=== PATIENT | male | born 1965 | race Caucasian/White ===

== ENCOUNTER 2023-08-21 15:55 | Emergency (ER) | payer OTHER, SELFPAY ==
--- NOTE | ~2023-08-21 | US_ITS ---
COMPLETE ABDOMINAL ULTRASOUND Ordering provider: En Santana PA-C History: . RUQ pain, burning . Comparison: None. FINDINGS: LIVER: Normal size and echotexture. No focal hepatic lesions or perihepatic fluid collections are yanet ntified. The liver measures 19.4 cm. Normal portal vein flow. GALLBLADDER: Contracted. BILIARY DUCTS: No evidence for intra or extrahepatic biliary dilation. Common bile duct measures 4 mm in diameter which is within normal limits. PANCREAS: Not visualized. FREE FLUID: None. IMPRESSION: Contracted gallbladder. Hepatomegaly with No focal lesions seen in the liver. Reviewed, dictated and finalized at location A.
--- NOTE | ~2023-08-21 | CT_ITS ---
CT abdomen pelvis w con Ordering provider: En Santana PA-C History: 57 years Male with . RUQ tenderness . Comparison: None. Technique: CT abdomen and pelvis with IV and without oral contrast. Radiation reduction technique uti lized. Findings: VISUALIZED LOWER CHEST: Minimal dependent atelectatic changes. UPPER ABDOMINAL ORGANS: Liver: Normal. Gallbladder: Contracted. Spleen: Normal. Stomach/duodenum: Normal. Pancreas: Normal. Adrenals: Normal. Kidneys: Tiny cyst in the right kidney upper pole. Minimal Perinephric stranding Around both kidneys. an exophytic mass seen in the left kidney midpole measuring 2.1 x 1.8 x 1.8 cm. PELVIC ORGANS: The bladder is normal. BOWEL AND MESENTERY: Colon: No evidence of diverticulitis. Normal appendix. Small Bowel: Normal. No obstruction. Peritoneum/mesentery: No free air or free fluid. No mesenteric lymphadenopathy. Small mesenteric lymp h nodes are noted. RETROPERITONEUM: Normal aorta. No retroperitoneal lymphadenopathy. MUSCULOSKELETAL: Superficial soft tissues: Small fat-containing umbilical hernia. Small inguinal lymph nodes. The larg est measures 1.4 cc. Otherwise, The superficial soft tissues are normal. Bones: Age appropriate degenerative changes of the spine. Pubic symphysitis. Sclerotic area in the ri ght sacral alar may be due to sacroiliitis. Follow-up advised. IMPRESSION: 1. No evidence of appendicitis, diverticulitis or intestinal obstruction. No definite renal stones. 2. Highly suggestive mass in the left kidney mid pole. Follow-up and further evaluation advised. 3. Sclerotic lesion in the right sacral alar. Follow-up advised. 4. Small fat-containing umbilical hernia. Reviewed, dictated and finalized at location A. IMPRESSION: 1. No evidence of appendicitis, diverticulitis or intestinal obstruction. No d efinite renal stones. 2. Highly suggestive mass in the left kidney mid pole. Follow-up and further e valuation advised. 3. Sclerotic lesion in the right sacral alar. Follow-up advised. 4. Small fat-containing umbilical hernia.
[2023-08-21 16:05] VITALS: BP 184/104; PULSE 107; RESP 18; O2SAT 97
[2023-08-21 16:06] VITALS: BP 165/70; PULSE 106; RESP 20; TEMP 36.4; O2SAT 97
--- NOTE | 2023-08-21 16:08 | ECG_ITS ---
Test Date: 2023-08-21 16:12:48 Measurements Intervals [place] Rate: 108 P: 39 AK: 140 QRS: 48 QRSD: 85 T: 33 QT: 320 QTc: 429 Interpretive Statements SINUS TACHYCARDIA No previous ECG available for comparison Electronically Signed On 08-22-2023 12:37:36 CDT by Elsa Noble M.D.
[2023-08-21 16:20] LABS: Basophils Absolute Auto 0.1 K/mm3 (0.0-0.1); Basophils Percent Auto 0.8 % (0.2-1.2); Eosinophils Absolute Auto 0.2 K/mm3 (0-0.3); Eosinophils Percent Auto 3.1 % (0-4.4); Hemoglobin 18.5 g/dL (14.0-18.0); Immature Granulocyte Absolute 0.01 K/mm3 (0.00-0.031); Immature Granulocyte Percent A 0.2 % (0-0.5); Lymphocytes Absolute Auto 1.49 K/mm3 (0.9-3.2); Mean Corpuscular HGB Conc 34.3 g/dl (32-36); Mean Corpuscular Volume 87.5 fl (80-100); Mean Platelet Volume 10.6 fl (7.4-10.4); Monocytes Absolute Auto 0.6 K/mm3 (0.1-0.6); Monocytes Percent Auto 8.7 % (2.6-8.5); Neutrophils Absolute Auto 4.2 K/mm3 (1.3-6.7); Neutrophils Percent Auto 64.2 % (45.5-73.1); Platelet Count Result 166 k/mm3 (150-375); Red Blood Count 6.17 M/mm3 (4.6-6.20); Red Cell Distribution Width 13.7 % (11.5-14.5); White Blood Count 6.5 K/mm3 (4.5-10.0)
[2023-08-21 16:37] LABS: Alanine Aminotransferase 24 U/L (6-50); Alkaline Phosphatase 77 U/L (38-126); Anion Gap 12 mmol/L (4-12); Aspartate Amino Transferase 36 U/L (17-59); Bilirubin,Total 0.9 mg/dL (0.2-1.3); Blood Urea Nitrogen 20 mg/dL (9-20); Calcium 9.7 mg/dL (8.4-10.2); Carbon Dioxide 25 mmol/L (22-30); Chloride 103 mmol/L (98-107); Estimated CRCL calculation 81 ml/min; Estimated Glomerular Filt Rate > 60; Glucose 260 mg/dL (65-110); Lipase 250 U/L (23-300); Potassium 4.6 mmol/L (3.4-5.0); Sodium 140 mmol/L (137-145)
--- NOTE | 2023-08-21 16:39 | ED.ABDPAIN ---
HPI - Abdominal Pain General Chief Complaint: Abdominal Pain <LISBETH Bowling Last Filed: 08/30/23 08:59> Stated Complaint: RUQ abd pain <LISBETH Bowling Last Filed: 08/30/23 08:59> Time Seen by Provider: 08/21/23 16:07 <En Santana PA-C - Last Filed: 08/30/23 08:59> Source: patient <LISBETH Bowling Last Filed: 08/30/23 08:59> Mode of arrival: ambulatory <LISBETH Bowling Last Filed: 08/30/23 08:59> Limitations: no limitations <LISBETH Bowling Last Filed: 08/30/23 08:59> History of Present Illness HPI narrative: This is a 57-year-old male who presents to the ED with chief complaint of epigastric and right upper quadrant pain this started 2 days ago. Reports a lot of pressure like pain in the abdomen but worse in those areas. Patient states that he is a diabetic but does not check his blood sugars anymore as he has had frequent low A1cs. States his last A1c was in the upper 5s. states he has been having regular bowel movements. Denies fevers, chills, nausea, vomiting, troubles with urination, chest pain, shortness of breath. <En Santana PA-C - Last Filed: 08/30/23 08:59> Related Data Allergies/Adverse Reactions: Allergies Allergy/AdvReac Type Severity Reaction Status Date / Time No Known Allergies Allergy Verified 08/21/23 16:08 <En Santana PA-C - Last Filed: 08/30/23 08:59> Exam Narrative: GENERAL: Well-appearing, well-nourished, and in no acute distress. HEAD: Normocephalic, atraumatic. EYES: PERRLA and EOMI. ENT: Nares clear, no rhinorrhea or epistaxis. Mucous membranes moist. Oropharynx without tonsillar hypertrophy exudate or other lesions. NECK: Supple. No adenopathy or masses. CHEST: No respiratory distress. Clear to auscultation. No wheezes rales or rhonchi HEART: Regular rate and rhythm. No murmur heard. Normal peripheral pulses. ABDOMEN: Soft, nontender, nondistended, normal active bowel sounds. MSK: Normal range of motion. No edema. SKIN: Warm, dry, no rash. NEURO: Alert and oriented x4. No focal deficits. PSYCH: Normal mood and affect. <En Santana PA-C - Last Filed: 08/30/23 08:59> Course Course Emergency Course: 19:08: sign-out to me pending gallbladder ultrasound which shows a contacted gallbladder with hepatomegaly, no focal lesions. LFTs normal. Patient was updated on these results and advised to follow-up with his PCP. Strict ED return precautions discussed. He is agreeable to plan verbalized understanding. Discharged in stable condition. <Liya Sharma PA-C - Last Filed: 08/21/23 19:11> Vital Signs Vital signs: Vital Signs Pulse Rate 107 H 08/21/23 16:05 Respiratory Rate 18 08/21/23 16:05 Blood Pressure 184/104 H 08/21/23 16:05 Pulse Oximetry 97 08/21/23 16:05 Oxygen Delivery Room Air 08/21/23 16:05 Temperature 97.4 F L 08/21/23 19:01 Pulse Rate 102 H 08/21/23 19:01 Respiratory Rate 14 08/21/23 19:01 Blood Pressure 126/87 08/21/23 19:01 Pulse Oximetry 96 08/21/23 19:01 Oxygen Delivery Room Air 08/21/23 16:05 <En Santana PA-C - Last Filed: 08/30/23 08:59> Vital Signs Pulse Rate 107 H 08/21/23 16:05 Respiratory Rate 18 08/21/23 16:05 Blood Pressure 184/104 H 08/21/23 16:05 Pulse Oximetry 97 08/21/23 16:05 Oxygen Delivery Room Air 08/21/23 16:05 Temperature 97.4 F L 08/21/23 19:01 Pulse Rate 102 H 08/21/23 19:01 Respiratory Rate 14 08/21/23 19:01 Blood Pressure 126/87 08/21/23 19:01 Pulse Oximetry 96 08/21/23 19:01 Oxygen Delivery Room Air 06/12/24 16:05 <Liya Sharma PA-C - Last Filed: 08/21/23 19:11> MDM - Abdominal Pain MDM Narrative Medical decision making narrative: this is a 57-year-old male who presents to the ED with chief complaint of right upper quadrant and epigastric abdominal pain for the past 2 days. Vitals show elevated blood pressure and
[2023-08-21 16:46] LABS: Troponin I 0.026 ng/mL (0.000-0.034)
[2023-08-21] MEDS: SODIUM CHLORIDE 0.9% IV 1,000 ML 999 ML IV CONT ×2 (16:59→17:00)
[2023-08-21 17:09] VITALS: BP 164/72; PULSE 109; RESP 20; TEMP 36.4; O2SAT 98
[2023-08-21 17:52] LABS: Appearance Urine Clear (Clear); Bilirubin Urine Negative (Negative); Blood Urine Negative (Negative); Color Urine Yellow (Yellow); Glucose Urine UA 3+ mg/dL (Negative); Ketones Urine Trace mg/dL (Negative); Leukocyte Esterase Ur Negative LEU/UL (Negative); Nitrate Urine Negative (Negative); Protein Urine Negative (Negative); Urobilinogen Urine 0.2 mg/dL (<2.0)
[2023-08-21 17:54] VITALS: BP 146/92; PULSE 101; RESP 12; TEMP 36.6; O2SAT 99
[2023-08-21 17:56] LABS: Specific Grav Ur 1.056 (1.001-1.035)
[2023-08-21 17:57] LABS: Add Urine Microscopic? NO
[2023-08-21] MEDS: BELLADONNA ALK/PHENOB ELIX 10 ML, MAG HYDROX/ALUMINUM HYD/SIMETH 30 ML, LIDOCAINE HCL 2... PO (17:57)
[2023-08-21] MEDS: FAMOTIDINE 20 MG/2 ML VIAL IV PUSH (17:59)
[2023-08-21 18:15] VITALS: PULSE 102; RESP 21; O2SAT 98
[2023-08-21] MEDS: KETOROLAC 15 MG/ML VIAL (*BKC) IV PUSH (18:36)
[2023-08-21 19:01] VITALS: BP 126/87; PULSE 102; RESP 14; TEMP 36.3; O2SAT 96
== END 2023-08-21 19:22 | disposition home or self-care (01) ==
PROVIDERS: Emergency Provider Physician Assistant
DX: K29.70 Gastritis, unspecified, without bleeding (principal); N28.89 Other specified disorders of kidney and ureter; R16.0 Hepatomegaly, not elsewhere classified; E11.9 Type 2 diabetes mellitus without complications; K42.9 Umbilical hernia without obstruction or gangrene; M89.9 Disorder of bone, unspecified; R00.0 Tachycardia, unspecified
CPT/HCPCS: 36415; 74177; 76705; 80053; 81003; 83690; 84484; 85025; 93005; 96361; 96374; 96375; 99284; A9270; J1885; J7030; Q9967